=== PATIENT | female | born 1945 | race Caucasian/White ===

== ENCOUNTER 2021-10-26 17:42 | Inpatient (IN) ==
--- NOTE | 2021-10-26 17:56 | EKG ---
[facility] Test Date: 2021-10-26 Pat Name: Dayanna Bain Department: ED Room: Gender: Female Supervisory Geographer: MIRTA : 1945 Requested By: Hank Best Order Number: [id number] Reading MD: Monet Penn D.O. Measurements Intervals [place] Rate: 85 P: 64 ND: 188 QRS: 0 QRSD: 97 T: 31 QT: 373 QTc: 444 Interpretive Statements Sinus rhythm left axis devation Electronically Signed On 10-26-2021 17:55:57 PDT by Monet Penn D.O. /store/[email or web address]/[id number]
[2021-10-26] MEDS ORDERED: 0.9 % SODIUM CHLORIDE 1,000 ML IV ONE (18:08)
[2021-10-26 18:31] LABS: POC Blood Urea Nitrogen 43 mg/dL (6-20); POC CO2 22 mmol/L (22-30); POC Calcium, Ionized 0.99 mmEq/L (1.16-1.32); POC Chloride 102 mEq/L (96-108); POC Creatinine 2.7 mg/dL (0.6-1.2); POC Glucose, Random 156 mg/dL (70-105); POC Hematocrit 36 % (36-48); POC Potassium 3.3 mEql/L (3.3-5.1); POC Sodium 137 mEq/L (133-145)
[2021-10-26 19:00] LABS: Basophils # (Auto) 0.04 K/mcL (0.00-0.30); Basophils % (Auto) 0.5 % (0.0-2.0); Eosinophils # (Auto) 0.12 K/mcL (0.00-0.70); Eosinophils % (Auto) 1.4 % (0.0-7.0); Hematocrit 37.6 % (34.1-44.9); Hemoglobin 11.9 g/dL (11.2-15.7); Lymphocytes # (Auto) 0.88 K/mcL (1.50-4.80); Lymphocytes % (Auto) 10.2 % (15.5-49.0); Mean Cell Volume 91.7 fL (80.0-100.0); Mean Corpuscular HGB Conc 31.6 g/dL (31.0-36.0); Mean Platelet Volume 10.2 fL (7.4-10.4); Monocytes # (Auto) 0.37 K/mcL (0.10-0.90); Monocytes % (Auto) 4.3 % (1.0-12.0); Neutrophils % (Auto) 83.6 % (38.0-78.0); Platelet Count 239 K/mcL (140-440); Red Cell Distribution Width 13.6 % (11.5-14.5); WBC 8.6 K/mcL (4.5-11.0)
--- NOTE | 2021-10-26 19:57 | Internal Med History&Physical ---
HPI History of Present Illness Patient information: Note initiated : 10/26/21 at 7:56 pm Service Date, if different from initiated Date: [] Patient: Dayanna Bain 76 y/o F admitted on for Weakness. Chief Complaint: [] History of present illness: Ms. Bain is a 76 year old female with a history of deafness, hypertension, hyperlipidemia, chronic kidney disease, on lisinopril, hydrochlorothiazide and Lasix presented to the emergency department for generalized weakness and loose stools and found to have an acute on chronic kidney disease injury. Patient received a IV fluid bolus in the emergency department. Hospital medicine was consulted for admission. It is very difficult to get history from the patient due to her deafness. Review of systems: Unable to obtain due to deafness. Physical exam Head: Atraumatic, normal inspection. Eyes: normal appearance, no scleral icterus. Neck: full ROM Respiratory: no respiratory distress. Cardiovascular: normal rate and rhythm, S1, S2. GI/Abdominal: soft, nontender, no guarding. Extremities: full range of motion, nontender. Neurological: CN II-XII intact, intact motor, intact sensation. Psychiatric: normal mood. Skin: Decreased skin turgor. PFSH PFSH All Active Problems (Updated 10/26/21 @ 20:08 by Hank Best DO) Acute kidney injury (Acute) Dehydration (Acute) MEDS/ALLERGIES Home Medications and Allergies Home Medications Medication Instructions Recorded Confirmed Type albuterol 90 mcg/actuation aerosol 2 mcg INHALATION PRN PRN 10/26/21 10/26/21 History inhaler aspirin 81 mg tablet,delayed 81 mg PO QDAY 10/26/21 10/26/21 History release diclofenac sodium 1 % topical gel 2 g TOPICAL QID 10/26/21 10/26/21 History furosemide 40 mg tablet 40 mg PO QDAY 10/26/21 10/26/21 History gabapentin 100 mg tablet 100 mg PO QDAY 10/26/21 10/26/21 History hydrochlorothiazide 25 mg tablet 25 mg PO QDAY 10/26/21 10/26/21 History lidocaine HCl 4 % topical liquid 4 ea TOPICAL PRN PRN 10/26/21 10/26/21 History roll-on (Aspercreme (lidocaine HCl)) lisinopril 40 mg tablet 40 mg PO QDAY 10/26/21 10/26/21 History lovastatin 10 mg tablet 10 mg PO QDAY 10/26/21 10/26/21 History Allergies Allergy/AdvReac Type Severity Reaction Status Date / Time morphine Allergy Unknown Unknown Verified 10/26/21 17:45 EXAM Constitutional Vitals: Pulse Resp BP Pulse Ox 75 19 102/67 100 10/26/21 19:39 10/26/21 19:39 10/26/21 19:31 10/26/21 19:39 DATA Data Completed and Pending Labs: Labs from last 24 hours 10/26/21 10/26/21 18:23 18:23 WBC 8.6 RBC 4.10 Hgb 11.9 Hct 37.6 POC Hct 36 MCV 91.7 MCH 29.0 MCHC 31.6 RDW 13.6 Plt Count 239 MPV 10.2 Neut % (Auto) 83.6 H Lymph % (Auto) 10.2 L [place] % (Auto) 4.3 Eos % (Auto) 1.4 Baso % (Auto) 0.5 Lymph # (Auto) 0.88 L [place] # (Auto) 0.37 Eos # (Auto) 0.12 Baso # (Auto) 0.04 Absolute Neutrophils 7.22 POC Sodium 137 POC Potassium 3.3 POC Chloride 102 POC Total CO2 22 POC BUN 43 H POC Creatinine 2.7 H POC Glucose 156 H POC WB Ioniz Calcium 0.99 L Magnesium 2.6 H A/P Narrative A/P Narrative: Assessment: 76 year old female with a history of hypertension, hyperlipidemia, chronic kidney disease, on lisinopril, hydrochlorothiazide and Lasix presented to the emergency department for generalized weakness and loose stools and found to have an acute on chronic kidney disease injury. #Acute on chronic kidney disease injury -Probably prerenal OCTAVIA versus ATN. #Generalized weakness #Reported loose stools #Essential hypertension #Obesity BMI 31 Plan -IV fluid, follow urine output. -Follow renal function, electrolytes. -Hold lisinopril, hydrochlorothiazide, Lasix, NSAIDs. -Bilateral renal ultrasound. -Urinalysis. -Monitor for ongoing loose stools, consider work-up if persistent. -Home medication reconciliation. -Regular diet. -PT consult. -DVT prophylaxis: Heparin SQ -Disposition: TBD Time Spent With Patient Time: Total time spent is greater than 50% in coordination of care (as documented) at patient's floor/unit and/or counseling patient:
--- NOTE | 2021-10-26 20:08 | Emergency Department Note ---
HPI General Chief complaint: Weakness Stated complaint: Weakness Time Seen by Provider: 10/26/21 18:08 Source: patient Mode of arrival: ambulatory Limitations: physical limitation History of Present Illness HPI Narrative: Patient is clinically deaf presents chief complaint generally not feeling well over the last 7 days. Associated with nonfocal weakness and fatigue. Has been having episodes of multiple bowel movements daily that are not bilious dark and tarry watery or foul-smelling. Patient denies current CP, sob, fever, chills, focal acute weakness, loss/change of sensation, or any other complaints at this time. PMH/PSHx/Meds/Allergies/SH/FH as per nursing documentation and reviewed. A full 10 point review of systems reviewed and negative except as noted in HPI. Related Data Home Medications Medication Instructions Recorded Confirmed albuterol 90 mcg/actuation aerosol 2 mcg INHALATION PRN PRN 10/26/21 10/26/21 inhaler aspirin 81 mg tablet,delayed 81 mg PO QDAY 10/26/21 10/26/21 release diclofenac sodium 1 % topical gel 2 g TOPICAL QID 10/26/21 10/26/21 furosemide 40 mg tablet 40 mg PO QDAY 10/26/21 10/26/21 gabapentin 100 mg tablet 100 mg PO QDAY 10/26/21 10/26/21 hydrochlorothiazide 25 mg tablet 25 mg PO QDAY 10/26/21 10/26/21 lisinopril 40 mg tablet 40 mg PO QDAY 10/26/21 10/26/21 lovastatin 10 mg tablet 10 mg PO QDAY 10/26/21 10/26/21 Allergies Allergy/AdvReac Type Severity Reaction Status Date / Time morphine Allergy Unknown Unknown Verified 10/26/21 17:45 Review of Systems ROS ROS Narrative: see HPI PFSH Narrative Patient History Narrative: Narrative: Medical/Surgical/Family History All Active Problems (Updated 10/26/21 @ 20:08 by Hank Best DO) Acute kidney injury (Acute) Dehydration (Acute) Social History Smoking Status: Unknown if ever smoked Exam Narrative Narrative: PHYSICIAL EXAM: Vitals reviewed GENERAL: The patient appears nourished and normally developed. No acute distress in room, vital signs as documented. EYES: Head exam is unremarkable. No scleral icterus HEENT: Mucous membranes moist. Nares patent without copious rhinorrhea. LUNGS: Lungs are clear to auscultation, -r/r/w without any respiratory distress. CARDIAC: Rhythm is regular. No dysrhythmias or murmurs. ABDOMEN: Soft, non-tender, non-distended, no rebound/guarding, with no obvious masses EXTREMITIES: No peripheral edema, with no obvious deformities. SKIN: Good color, with no significant rashes. No pallor. NEURO: No obvious neurological deficits, normal sensation and strength bilaterally. P PSYCH: Mood and affect normal. Appropriate for age. General Limitations: physical limitation Course Reevaluation(s) Reevaluation #1: Patient will be admitted as discussed emergency department will continue to monitor Time: 20:07 Vital Signs Vital signs: Vital Signs Blood Pressure 93/48 10/26/21 17:46 Temperature 98.4 F 10/27/21 08:00 Pulse Rate 93 H 10/27/21 08:00 Respiratory Rate 17 10/27/21 08:00 Blood Pressure 118/56 10/27/21 08:00 Pulse Oximetry (%) 97 10/27/21 08:00 [facility] MDM Narrative Medical decision making narrative: All results/imaging obtained reviewed and interpreted, results trended/compared with previous levels if available to evaluate for abnormality contributing to todays presentation, And have acute kidney injury and dehydration vital signs improved emergency department with hydration understands plan for admission agrees After reviewing patients comorbidities, severity of history of presenting illness, labs and imaging if obtained in conjunction with physical exam and course in emergency department, deemed to have potential for deterioration/progression of symptoms that could lead to multiple morbidities or mortality, decision made that patient requires further observation/evaluation/treatment and patient admitted to appropriate service, patient/family understand and agree with plan. Chart created with voice recognition software, errors may be present due to softwares interpretation Lab Data Result diagrams: 10/26/21 18:23 10/27/21 05:20 Labs: Lab Results 10/26/21 10/26/21 Range/Units 18:23 18:23 WBC 8.6 (4.5-11.0) K/mcL RBC 4.10 (3.59-5.38) M/mcL Hgb 11.9 (11.2-15.7) g/dL Hct 37.6 (34.1-44.9) % POC Hct 36 (36-48) % MCV 91.7 (80.0-100.0) fL MCH 29.0 (26.0-34.0) pg MCHC 31.6 (31.0-36.0) g/dL RDW 13.6 (11.5-14.5) % Plt Count 239 (140-440) K/mcL MPV 10.2 (7.4-10.4) fL Neut % (Auto) 83.6 H (38.0-78.0) % Lymph % (Auto) 10.2 L (15.5-49.0) % [place] % (Auto) 4.3 (1.0-12.0) % Eos % (Auto) 1.4 (0.0-7.0) % Baso % (Auto) 0.5 (0.0-2.0) % Lymph # (Auto) 0.88 L (1.50-4.80) K/mcL [place] # (Auto) 0.37 (0.10-0.90) K/mcL Eos # (Auto) 0.12 (0.00-0.70) K/mcL Baso # (Auto) 0.04 (0.00-0.30) K/mcL Absolute Neutrophils 7.22 (1.80-8.00) K/mcL POC Sodium 137 (133-145) mEq/L POC Potassium 3.3 (3.3-5.1) mEql/L POC Chloride 102 (96-108) mEq/L POC Total CO2 22 (22-30) mmol/L POC BUN 43 H (6-20) mg/dL POC Creatinine 2.7 H (0.6-1.2) mg/dL POC Glucose 156 H (70-105) mg/dL POC WB Ioniz Calcium 0.99 L (1.16-1.32) mmEq/L Magnesium 2.6 H (1.6-2.5) mg/dL ED POC Tests ED POC Tests: MELANIE - SARS Antigen Negative EKG Data EKG #1: EKG attestation: Yes I reviewed and interpreted this EKG. EKG results narrative: Obtained 1751 reviewed 1753 Sinus rhythm no acute ST elevation depression signs acute ischemia rate 85 PA 188 QRS 97 QT 373 QTC 444 no bundle branch block normal axis Interpreted personally Discharge Plan Patient/Caregiver Discharge Instructions Pt seen by STRATEGY CONSULTANT/PA only: No Clinical Impression: Acute kidney injury, Dehydration Patient Disposition: Xfer As Inpt ([facility]) Discharge Date/Time: 10/26/21 21:42
[2021-10-26] MEDS ORDERED: SENNOSIDES 1 TABLET PO PRN ×2 (21:48→22:00)
[2021-10-26] MEDS ORDERED: ONDANSETRON 4 MG/2 ML VIAL IV PRN (21:48)
[2021-10-26] MEDS: 0.9 % SODIUM CHLORIDE 10 ML SYRINGE IV SCH (22:19)
[2021-10-26] MEDS: HEPARIN 5,000 UNIT/ML VIAL SQ SCH (22:19)
[2021-10-26] MEDS: LACTATED RINGERS 1,000 ML IV SCH (22:19)
[2021-10-27 04:16] LABS: Appearance,Urine CLEAR (Clear); Bilirubin,Urine Negative (Negative); Color,Urine YELLOW; Culture Indicated,Urine No; Glucose,Urine (UA) Negative (Negative); Ketones,Urine Negative (Negative); Leukocyte Esterase,Urine Negative /uL (Negative); Mucus,Urine MOD /hpf; Nitrate,Urine Negative (Negative); Protein,Urine Negative (Negative); Specific Gravity,Urine 1.011 (1.000-1.035); Urine Blood 0.03 mg/dL (Negative); Urine Hyaline Cast 61 /lph (0-2); Urine RBC 1 /hpf (0-3); Urine Squamous Epithelial Cell 1 /hpf (0-4); Urine Transitional Epi Cells < 1 /hpf (0-2); Urine WBC 2 /hpf (0-4); Urobilinogen,Urine Negative
[2021-10-27] MEDS: 0.9 % SODIUM CHLORIDE 10 ML SYRINGE IV SCH ×3 (05:11→20:37)
[2021-10-27 06:51] LABS: ALT/SGPT 5 U/L (<40); AST/SGOT 11 U/L (<32); Alkaline Phosphatase 129 U/L (39-117); Bilirubin,Direct < 0.2 mg/dL (0-0.3); Bilirubin,Total 0.3 mg/dL (0.1-1.0); Blood Urea Nitrogen 45 mg/dL (8-23); Calcium 8.6 mg/dL (8.6-10.4); Carbon Dioxide 24 mmol/L (22-30); Chloride 101 mmol/L (96-108); Globulin 3.1 gm/dL (2.2-3.7); Glomerular Filtration Rate 21; Glucose 97 mg/dL (70-105); Lactate Dehydrogenase 184 U/L (135-225); Phosphorous 3.7 mg/dL (2.5-4.5); Triglycerides 95 mg/dL (<150); Uric Acid 12.4 mg/dL (2.5-8.0)
[2021-10-27] MEDS: LACTATED RINGERS 1,000 ML IV SCH ×4 (07:32→21:28)
--- NOTE | 2021-10-27 08:40 | Ultrasound Report ---
INDICATION: Acute kidney injury TECHNIQUE: Grayscale and color flow Doppler spectral imaging. COMPARISON: None. FINDINGS: Right kidney: Right kidney .0 x 4.1 x 4.4 cm. There is no hydronephrosis. No solid right renal mass. Renal cortex is mildly thinned and measures approximately 8 mm. No detectable calculi. Left kidney: Left kidney [id number] x 3.6 x 4.9 cm. There is no hydronephrosis. No solid left renal mass. Renal cortex is mildly thickened and measures approximately 8 mm. No detectable calculi. Incidental note is made of a benign simple cyst. This is lower pole and measures 1.6 cm in diameter. Bladder: Prevoid bladder mL. Post void bladder volumeis not assessed as this patient is unable to void. No bladder calculi. No detectable mass. Bilateral ureteral jets visualized. IMPRESSION: 1. Mild bilateral renal cortical thinning 2. No hydronephrosis or solid renal mass. No acute abnormality Interpreted and Authenticated by: Kael Jimenez 10/27/21
[2021-10-27] MEDS: HEPARIN 5,000 UNIT/ML VIAL SQ SCH ×2 (08:50→20:36)
--- NOTE | 2021-10-27 17:07 | Internal Med Progress Note ---
SUBJECTIVE Subjective Patient information: Note initiated : 10/27/21 at 5:03 pm Service Date, if different from initiated Date: [] Patient: Dayanna Bain 76 y/o F admitted on 10/26/21 for Weakness. Chief Complaint: [] Interval history: Ms. Bain is a 76 year old female with a history of deafness, hypertension, hyperlipidemia, chronic kidney disease, on lisinopril, hydrochlorothiazide and Lasix presented to the emergency department for generalized weakness and loose stools and found to have an acute on chronic kidney disease injury. Patient re ceived a IV fluid bolus in the emergency department. Hospital medicine was consulted for admission. It is very difficult to get history from the patient due to her deafness. 10/27 Renal function modestly improved, making urine, bilateral renal ultrasound did not show any evidence of hydronephrosis, urine analysis was benign. Review of the patient's past laboratory work indicate the patient does have chronic kidney disease stage III at baseline. Conversation held with the patient with the help of an oracle application architect. Physical exam Head: Atraumatic, normal inspection. Eyes: normal appearance, no scleral icterus. Neck: full ROM Respiratory: no respiratory distress. Cardiovascular: normal rate and rhythm, S1, S2. GI/Abdominal: soft, nontender, no guarding. Extremities: full range of motion, nontender. Neurological: CN II-XII intact, intact motor, intact sensation. Psychiatric: normal mood. Skin: Improved skin turgor. Constitutional Vitals: Vital Signs Temp Pulse Resp BP Pulse Ox 98.4 F 79 16 122/56 97 10/27/21 11:51 10/27/21 11:51 10/27/21 11:51 10/27/21 11:51 10/27/21 11:51 Period Temp Pulse Resp BP Sys/Ojeda Pulse Ox Last 24 Hr 96.8 F-98.4 F 72-96 15-36 86-122/30-85 90-100 Intake and Output 10/27/21 10/27/21 10/27/21 05:59 13:59 21:59 Intake Total 475 1345 Output Total 725 300 Balance -250 1045 Weight 57.425 kg 57.425 kg Patient Weight 10/28/21 05:59 Weight 57.425 kg Intake & Output: Intake & Output 10/27/21 10/27/21 10/27/21 05:59 13:59 21:59 Intake Total 475 1345 Output Total 725 300 Balance -250 1045 Weight 57.425 kg 57.425 kg Intake: IV 1345 Lactated Ringers 1,000 ml @ 100 1345 mls/hr IV .Q10H [facility] Rx#: [id number] Oral 475 Output: Void Amount 200 300 Urine/Stool Mix 250 Stool 275 Other: Meal cheese stick Percent of Meal Consumed 100% Feeding Ability Independent Urine Appearance Clear Urine Color Dark Yellow Bright Yellow Stool Size Smear Stool Color Brown Stool Consistency Liquid # Bowel Movements 1 OBJ DATA Labs CBC & Chem 7: 10/26/21 18:23 10/27/21 05:20 Labs: Abnormal Lab Results 10/27/21 10/27/21 10/26/21 05:20 02:45 18:23 Neut % (Auto) Lymph % (Auto) Lymph # (Auto) POC BUN 43 H BUN 45 H Creatinine 2.2 H POC Creatinine 2.7 H POC Glucose 156 H Uric Acid 12.4 H POC WB Ioniz Calcium 0.99 L Magnesium 2.6 H Alkaline Phosphatase 129 H Albumin 3.0 L Hyaline Casts 61 H Urine Mucus Mod A 10/26/21 18:23 Neut % (Auto) 83.6 H Lymph % (Auto) 10.2 L Lymph # (Auto) 0.88 L POC BUN BUN Creatinine POC Creatinine POC Glucose Uric Acid POC WB Ioniz Calcium Magnesium Alkaline Phosphatase Albumin Hyaline Casts Urine Mucus Meds: Medications Acetaminophen (Acetaminophen 325 Mg Tablet) 650 mg PO Q6HP PRN; Protocol PRN Reason: Per Pain Protocol/Fever > 101 Albuterol Sulfate (Albuterol Sulfate 200 Puff Inhaler) 2 puff INH Q4HP PRN PRN Reason: Shortness Of Breath Aspirin (Aspirin 81 Mg Tab.Chew) 81 mg PO QDAY [facility] Atorvastatin Calcium (Atorvastatin 10 Mg Tablet) 2.5 mg PO QDAY [facility] Gabapentin (Gabapentin 100 Mg Capsule) 100 mg PO QDAY [facility] Heparin Sodium (Porcine) (Heparin 5,000 Unit/Ml Vial) 5,000 unit SQ Q12 [facility] Last Admin: 10/27/21 08:50 Dose: 5,000 unit Documented by: Lactated Ringer's (Lactated Ringers) 1,000 mls @ 100 mls/hr IV .Q10H [facility] Last Infusion: 10/27/21 11:46 Dose: 75 mls/hr Documented by: Ondansetron HCl (Ondansetron 4 Mg/2 Ml Vial) 4 mg IV Q6HP PRN PRN Reason: Nausea And Vomiting Pneumococcal Polyvalent Vaccine (Pneumococcal 23-Adrianne P-Sac Vac 0.5 Ml Syringe) 0.5 ml IM .ONCE ONE Stop: 10/28/21 10:01 Senna (Sennosides 1 Tablet) 2 tab PO BIDP PRN PRN Reason: constipation Sodium Chloride (0.9 % Sodium Chloride 10 Ml Syringe) 10 ml IV Q8 [facility] Last Admin: 10/27/21 13:30 Dose: Not Given Documented by: A/P Narrative A/P Narrative: Assessment: 76 year old female with a history of hypertension, hyperlipidemia, chronic kidney disease, on lisinopril, hydrochlorothiazide and Lasix presented to the emergency department for generalized weakness and loose stools and found to have an acute on chronic kidney disease injury. #Acute on chronic kidney disease injury -Probably ATN. #Generalized weakness #Reported loose stools #Essential hypertension #Obesity BMI 31 Plan -Continue IV fluid, follow urine output. -Follow renal function, electrolytes. -Monitor volume status. -Hold lisinopril, hydrochlorothiazide, Lasix, NSAIDs. -Resume home aspirin, gabapentin, lovastatin, albuterol as needed. -Regular diet. -PT and OT consult. -DVT prophylaxis: Heparin SQ -Disposition: TBD Time Spent With Patient Time: Total time spent is greater than 50% in coordination of care (as documented) at patient's floor/unit and/or counseling patient: QUALITY VTE Deep Vein Thrombosis/Pulmonary Embolism Present on Admission: No
[2021-10-27] MEDS: ACETAMINOPHEN 325 MG TABLET PO PRN (18:53)
[2021-10-27] MEDS: ALBUTEROL SULFATE 200 PUFF INHALER INH PRN (20:36)
[2021-10-28] MEDS: LACTATED RINGERS 1,000 ML IV SCH (02:30)
[2021-10-28] MEDS: ALBUTEROL SULFATE 200 PUFF INHALER INH PRN (05:21)
[2021-10-28] MEDS: 0.9 % SODIUM CHLORIDE 10 ML SYRINGE IV SCH ×2 (05:21→15:15)
[2021-10-28] MEDS: ACETAMINOPHEN 325 MG TABLET PO PRN ×2 (07:31→15:25)
[2021-10-28 07:32] LABS: ALT/SGPT < 5 U/L (<40); AST/SGOT 10 U/L (<32); Albumin 2.8 gm/dL (3.2-5.2); Alkaline Phosphatase 99 U/L (39-117); Bilirubin,Direct < 0.2 mg/dL (0-0.3); Bilirubin,Total 0.3 mg/dL (0.1-1.0); Blood Urea Nitrogen 29 mg/dL (8-23); Calcium 8.2 mg/dL (8.6-10.4); Carbon Dioxide 23 mmol/L (22-30); Chloride 102 mmol/L (96-108); Globulin 2.7 gm/dL (2.2-3.7); Glomerular Filtration Rate 30; Glucose 85 mg/dL (70-105); Lactate Dehydrogenase 202 U/L (135-225); Phosphorous 2.2 mg/dL (2.5-4.5); Triglycerides 103 mg/dL (<150); Uric Acid 10.7 mg/dL (2.5-8.0)
[2021-10-28] MEDS: ATORVASTATIN 10 MG TABLET PO SCH (09:00)
[2021-10-28] MEDS: GABAPENTIN 100 MG CAPSULE PO SCH (09:00)
[2021-10-28] MEDS ORDERED: PNEUMOCOCCAL 23-VAL P-SAC VAC 0.5 ML SYRINGE IM ONE (10:00)
[2021-10-28] MEDS: ASPIRIN 81 MG TAB.CHEW PO SCH (10:32)
[2021-10-28] MEDS: HEPARIN 5,000 UNIT/ML VIAL SQ SCH (10:40)
--- NOTE | 2021-10-28 16:05 | Internal Med Progress Note ---
SUBJECTIVE Subjective Patient information: Note initiated : 10/28/21 at 4:03 pm Service Date, if different from initiated Date: [] Patient: Dayanna Bain 76 y/o F admitted on 10/26/21 for Weakness. Chief Complaint: [] Interval history: Ms. Bain is a 76 year old female with a history of deafness, hypertension, hyperlipidemia, chronic kidney disease, on lisinopril, hydrochlorothiazide and Lasix presented to the emergency department for generalized weakness and loose stools and found to have an acute on chronic kidney disease injury. Patient re ceived a IV fluid bolus in the emergency department. Hospital medicine was consulted for admission. It is very difficult to get history from the patient due to her deafness. 10/27 Renal function modestly improved, making urine, bilateral renal ultrasound did not show any evidence of hydronephrosis, urine analysis was benign. Review of the patient's past laboratory work indicate the patient does have chronic kidney disease stage III at baseline. Conversation held with the patient with the help of an forming roll operator. 10/28 Renal function improving, discontinued IV fluid. Now working on SNF placement. Physical exam Head: Atraumatic, normal inspection. Eyes: normal appearance, no scleral icterus. Neck: full ROM Respiratory: no respiratory distress. Cardiovascular: normal rate and rhythm, S1, S2. GI/Abdominal: soft, nontender, no guarding. Extremities: full range of motion, nontender. Neurological: CN II-XII intact, intact motor, intact sensation. Psychiatric: normal mood. Skin: Improved skin turgor. Constitutional Vitals: Vital Signs Temp Pulse Resp BP Pulse Ox 98.5 F 71 16 101/53 96 10/28/21 15:52 10/28/21 15:52 10/28/21 15:52 10/28/21 15:52 10/28/21 15:52 Period Temp Pulse Resp BP Sys/Ojeda Pulse Ox Last 24 Hr 98.2 F-99.2 F 71-86 16-19 90-116/42-56 93-96 Intake and Output 10/28/21 10/28/21 10/28/21 05:59 13:59 21:59 Intake Total 1000 1577 0 Output Total 900 200 150 Balance 100 1377 -150 Intake & Output: Intake & Output 10/28/21 10/28/21 10/28/21 05:59 13:59 21:59 Intake Total 1000 1577 0 Output Total 900 200 150 Balance 100 1377 -150 Intake: IV 1577 0 Lactated Ringers 1,000 ml @ 100 1577 0 mls/hr IV .Q10H [facility] Rx#: [id number] Oral 1000 Output: Void Amount 900 150 Urine/Stool Mix 200 Other: Urine Appearance Clear Clear Clear Urine Color Bright Yellow Straw Pale Urine Odor Normal Stool Size Small Smear Stool Color Brown Brown Stool Consistency Loose Liquid OBJ DATA Labs CBC & Chem 7: 10/26/21 18:23 10/28/21 05:36 Labs: Abnormal Lab Results 10/28/21 10/27/21 10/27/21 05:36 05:20 02:45 Neut % (Auto) Lymph % (Auto) Lymph # (Auto) POC BUN BUN 29 H 45 H Creatinine 1.6 H 2.2 H POC Creatinine POC Glucose Uric Acid 10.7 H 12.4 H Calcium 8.2 L POC WB Ioniz Calcium Phosphorus 2.2 L Magnesium Alkaline Phosphatase 129 H Total Protein 5.5 L Albumin 2.8 L 3.0 L Hyaline Casts 61 H Urine Mucus Mod A 10/26/21 10/26/21 18:23 18:23 Neut % (Auto) 83.6 H Lymph % (Auto) 10.2 L Lymph # (Auto) 0.88 L POC BUN 43 H BUN Creatinine POC Creatinine 2.7 H POC Glucose 156 H Uric Acid Calcium POC WB Ioniz Calcium 0.99 L Phosphorus Magnesium 2.6 H Alkaline Phosphatase Total Protein Albumin Hyaline Casts Urine Mucus Meds: Medications Acetaminophen (Acetaminophen 325 Mg Tablet) 650 mg PO Q6HP PRN; Protocol PRN Reason: Per Pain Protocol/Fever > 101 Last Admin: 10/28/21 15:25 Dose: 650 mg Documented by: Albuterol Sulfate (Albuterol Sulfate 200 Puff Inhaler) 2 puff INH Q4HP PRN PRN Reason: Shortness Of Breath Last Admin: 10/28/21 05:21 Dose: 2 puff Documented by: Aspirin (Aspirin 81 Mg Tab.Chew) 81 mg PO QDAY [facility] Last Admin: 10/28/21 10:32 Dose: 81 mg Documented by: Atorvastatin Calcium (Atorvastatin 10 Mg Tablet) 2.5 mg PO QDAY [facility] Last Admin: 10/28/21 09:00 Dose: 2.5 mg Documented by: Gabapentin (Gabapentin 100 Mg Capsule) 100 mg PO QDAY [facility] Last Admin: 10/28/21 09:00 Dose: 100 mg Documented by: Ondansetron HCl (Ondansetron 4 Mg/2 Ml Vial) 4 mg IV Q6HP PRN PRN Reason: Nausea And Vomiting Senna (Sennosides 1 Tablet) 2 tab PO BIDP PRN PRN Reason: constipation Sodium Chloride (0.9 % Sodium Chloride 10 Ml Syringe) 10 ml IV Q8 [facility] Last Admin: 10/28/21 15:15 Dose: 10 ml Documented by: A/P Narrative A/P Narrative: Assessment: 76 year old female with a history of hypertension, hyperlipidemia, chronic kidney disease, on lisinopril, hydrochlorothiazide and Lasix presented to the emergency department for generalized weakness and loose stools and found to have an acute on chronic kidney disease injury. #Resolving acute on chronic kidney disease injury #Generalized weakness #Reported loose stools #Resolved bloody bowel movement #Essential hypertension #Obesity BMI 31 Plan -Discontinue IV fluid. -Follow renal function, electrolytes. -Monitor volume status. -Hold lisinopril, hydrochlorothiazide, Lasix, NSAIDs. -Home aspirin, gabapentin, lovastatin, albuterol as needed. -Regular diet. -PT and OT consult. -DVT prophylaxis: Heparin SQ -Disposition: SNF for rehab, follow up with PCP and possible GI referral to evaluate intermittent bloody bowel movements. Time Spent With Patient Time: Total time spent is greater than 50% in coordination of care (as documented) at patient's floor/unit and/or counseling patient: QUALITY VTE Deep Vein Thrombosis/Pulmonary Embolism Present on Admission: No
[2021-10-29] MEDS: 0.9 % SODIUM CHLORIDE 10 ML SYRINGE IV SCH ×4 (00:34→20:56)
[2021-10-29 07:07] LABS: ALT/SGPT < 5 U/L (<40); AST/SGOT 9 U/L (<32); Albumin 2.7 gm/dL (3.2-5.2); Alkaline Phosphatase 84 U/L (39-117); Bilirubin,Direct < 0.2 mg/dL (0-0.3); Bilirubin,Total < 0.2 mg/dL (0.1-1.0); Blood Urea Nitrogen 25 mg/dL (8-23); Calcium 8.5 mg/dL (8.6-10.4); Carbon Dioxide 25 mmol/L (22-30); Chloride 105 mmol/L (96-108); Globulin 2.7 gm/dL (2.2-3.7); Glomerular Filtration Rate 39; Glucose 86 mg/dL (70-105); Lactate Dehydrogenase 169 U/L (135-225); Phosphorous 2.4 mg/dL (2.5-4.5); Triglycerides 98 mg/dL (<150); Uric Acid 9.7 mg/dL (2.5-8.0)
[2021-10-29] MEDS: ASPIRIN 81 MG TAB.CHEW PO SCH (08:56)
[2021-10-29] MEDS: ATORVASTATIN 10 MG TABLET PO SCH (08:57)
[2021-10-29] MEDS: GABAPENTIN 100 MG CAPSULE PO SCH (08:57)
[2021-10-29] MEDS: ALBUTEROL SULFATE 200 PUFF INHALER INH PRN ×2 (14:29→20:56)
--- NOTE | 2021-10-29 16:23 | Internal Med Progress Note ---
SUBJECTIVE Subjective Patient information: Note initiated : 10/29/21 at 4:19 pm Service Date, if different from initiated Date: [] Patient: Dayanna Bain 76 y/o F admitted on 10/26/21 for Weakness. Chief Complaint: [] Interval history: Ms. Bain is a 76 year old female with a history of deafness, hypertension, hyperlipidemia, chronic kidney disease, on lisinopril, hydrochlorothiazide and Lasix presented to the emergency department for generalized weakness and loose stools and found to have an acute on chronic kidney disease injury. Patient re ceived a IV fluid bolus in the emergency department. Hospital medicine was consulted for admission. It is very difficult to get history from the patient due to her deafness. 10/27 Renal function modestly improved, making urine, bilateral renal ultrasound did not show any evidence of hydronephrosis, urine analysis was benign. Review of the patient's past laboratory work indicate the patient does have chronic kidney disease stage III at baseline. Conversation held with the patient with the help of an molder helper. 10/28 Renal function improving, discontinued IV fluid. Now working on SNF placement. 10/29 Renal function now probably at baseline, resting comfortably today. Blood pressure mostly normal and does not appear volume overloaded, continue to hold prior lisinopril, Hydrochlorothiazide, Lasix. Updated the patient's son. Working on placement. Physical exam Head: Atraumatic, normal inspection. Eyes: normal appearance, no scleral icterus. Neck: full ROM Respiratory: no respiratory distress. Cardiovascular: normal rate and rhythm, S1, S2. GI/Abdominal: soft, nontender, no guarding. Extremities: full range of motion, nontender. Neurological: CN II-XII intact, intact motor, intact sensation. Psychiatric: normal mood. Skin: Improved skin turgor. Constitutional Vitals: Vital Signs Temp Pulse Resp BP Pulse Ox 98 F 73 16 125/72 96 10/29/21 15:28 10/29/21 15:28 10/29/21 15:28 10/29/21 15:28 10/29/21 15:28 Period Temp Pulse Resp BP Sys/Ojeda Pulse Ox Last 24 Hr 97.7 F-98.4 F 71-77 16-20 104-136/37-77 94-96 Intake and Output 10/29/21 10/29/21 10/29/21 05:59 13:59 21:59 Intake Total 240 800 Output Total 1400 850 Balance -1160 -50 Intake & Output: Intake & Output 10/29/21 10/29/21 10/29/21 05:59 13:59 21:59 Intake Total 240 800 Output Total 1400 850 Balance -1160 -50 Intake: Oral 240 400 GI Tube Flush 400 Output: Void Amount 1400 850 Other: Meal Breakfast Percent of Meal Consumed 100% Feeding Ability Independent Urine Odor Normal Stool Size Small Stool Color Brown Stool Consistency Soft # Voids 3 1 # Bowel Movements 1 OBJ DATA Labs CBC & Chem 7: 10/26/21 18:23 10/29/21 05:38 Labs: Abnormal Lab Results 10/29/21 10/28/21 10/27/21 05:38 05:36 05:20 Neut % (Auto) Lymph % (Auto) Lymph # (Auto) POC BUN BUN 25 H 29 H 45 H Creatinine 1.3 H 1.6 H 2.2 H POC Creatinine POC Glucose Uric Acid 9.7 H 10.7 H 12.4 H Calcium 8.5 L 8.2 L POC WB Ioniz Calcium Phosphorus 2.4 L 2.2 L Magnesium Alkaline Phosphatase 129 H Total Protein 5.4 L 5.5 L Albumin 2.7 L 2.8 L 3.0 L Hyaline Casts Urine Mucus 10/27/21 10/26/21 10/26/21 02:45 18:23 18:23 Neut % (Auto) 83.6 H Lymph % (Auto) 10.2 L Lymph # (Auto) 0.88 L POC BUN 43 H BUN Creatinine POC Creatinine 2.7 H POC Glucose 156 H Uric Acid Calcium POC WB Ioniz Calcium 0.99 L Phosphorus Magnesium 2.6 H Alkaline Phosphatase Total Protein Albumin Hyaline Casts 61 H Urine Mucus Mod A Meds: Medications Acetaminophen (Acetaminophen 325 Mg Tablet) 650 mg PO Q6HP PRN; Protocol PRN Reason: Per Pain Protocol/Fever > 101 Last Admin: 10/28/21 15:25 Dose: 650 mg Documented by: Albuterol Sulfate (Albuterol Sulfate 200 Puff Inhaler) 2 puff INH Q4HP PRN PRN Reason: Shortness Of Breath Last Admin: 10/29/21 14:29 Dose: 2 puff Documented by: Aspirin (Aspirin 81 Mg Tab.Chew) 81 mg PO QDAY [facility] Last Admin: 10/29/21 08:56 Dose: 81 mg Documented by: Atorvastatin Calcium (Atorvastatin 10 Mg Tablet) 2.5 mg PO QDAY [facility] Last Admin: 10/29/21 08:57 Dose: 2.5 mg Documented by: Gabapentin (Gabapentin 100 Mg Capsule) 100 mg PO QDAY [facility] Last Admin: 10/29/21 08:57 Dose: 100 mg Documented by: Ondansetron HCl (Ondansetron 4 Mg/2 Ml Vial) 4 mg IV Q6HP PRN PRN Reason: Nausea And Vomiting Senna (Sennosides 1 Tablet) 2 tab PO BIDP PRN PRN Reason: constipation Sodium Chloride (0.9 % Sodium Chloride 10 Ml Syringe) 10 ml IV Q8 [facility] Last Admin: 10/29/21 14:24 Dose: 10 ml Documented by: A/P Narrative A/P Narrative: Assessment: 76 year old female with a history of hypertension, hyperlipidemia, chronic kidney disease, on lisinopril, hydrochlorothiazide and Lasix presented to the emergency department for generalized weakness and loose stools and found to have an acute on chronic kidney disease injury. The cause of the patient's acute on chronic kidney disease injury is likely hypovolemia occurring in the setting of multiple antihypertensive medications, lisinopril, hydrochlorothiazide, Lasix. After the patient was volume resuscitated, her blood pressure remained in the normal range off antihypertensives. #Resolved acute on chronic kidney disease injury #Generalized weakness #Obesity BMI 31 #Deafness Plan -Monitor renal function, electrolytes. -Monitor volume status. -Hold lisinopril, hydrochlorothiazide, Lasix, NSAIDs. -Home aspirin, gabapentin, lovastatin, albuterol as needed. -Regular diet. -PT and OT consult. -DVT prophylaxis: Heparin SQ -Disposition: SNF for rehab, follow up with PCP. May not need antihypertensive medications, the patient's blood pressure have been normal while holding her antihypertensive medications and lasix. Time Spent With Patient Time: Total time spent is greater than 50% in coordination of care (as documented) at patient's floor/unit and/or counseling patient: QUALITY VTE Deep Vein Thrombosis/Pulmonary Embolism Present on Admission: No
[2021-10-30] MEDS: 0.9 % SODIUM CHLORIDE 10 ML SYRINGE IV SCH ×3 (04:24→20:36)
[2021-10-30] MEDS: ATORVASTATIN 10 MG TABLET PO SCH (09:37)
[2021-10-30] MEDS: ASPIRIN 81 MG TAB.CHEW PO SCH (09:37)
[2021-10-30] MEDS: GABAPENTIN 100 MG CAPSULE PO SCH (09:37)
--- NOTE | 2021-10-30 11:11 | Internal Med Progress Note ---
SUBJECTIVE Subjective Patient information: Note initiated : 10/30/21 at 11:11 am Service Date, if different from initiated Date: [] Patient: Dayanna Bain 76 y/o F admitted on 10/26/21 for Weakness. Chief Complaint: [] Interval history: Ms. Bain is a 76 year old female with a history of deafness, hypertension, hyperlipidemia, chronic kidney disease, on lisinopril, hydrochlorothiazide and Lasix presented to the emergency department for generalized weakness and loose stools and found to have an acute on chronic kidney disease injury. Patient r eceived a IV fluid bolus in the emergency department. Hospital medicine was consulted for admission. It is very difficult to get history from the patient due to her deafness. 10/27 Renal function modestly improved, making urine, bilateral renal ultrasound did not show any evidence of hydronephrosis, urine analysis was benign. Review of the patient's past laboratory work indicate the patient does have chronic kidney disease stage III at baseline. Conversation held with the patient with the hel p of an log haul chain feeder. 10/28 Renal function improving, discontinued IV fluid. Now working on SNF placement. 10/29 Renal function now probably at baseline, resting comfortably today. Blood pressure mostly normal and does not appear volume overloaded, continue to hold prior lisinopril, Hydrochlorothiazide, Lasix. Updated the patient's son. Working on placement. 10/30 Feels okay today, constipated. Started bowel regimen. Renal function has improved, creatinine 1.3 today and likely near the patient's baseline renal function. Blood pressure slowly trending up, still holding prior antihypertensive medications and Lasix. Physical exam Head: Atraumatic, normal inspection. Eyes: normal appearance, no scleral icterus. Neck: full ROM Respiratory: no respiratory distress. Cardiovascular: normal rate and rhythm, S1, S2. GI/Abdominal: soft, nontender, no guarding. Extremities: full range of motion, nontender. Neurological: CN II-XII intact, intact motor, intact sensation. Psychiatric: normal mood. Skin: Improved skin turgor. Constitutional Vitals: Vital Signs Temp Pulse Resp BP Pulse Ox 98.0 F 69 24 H 131/46 98 10/30/21 08:00 10/30/21 08:00 10/30/21 08:00 10/30/21 08:00 10/30/21 08:00 Period Temp Pulse Resp BP Sys/Ojeda Pulse Ox Last 24 Hr 98 F-99.4 F 62-79 14-24 125-143/44-77 96-98 Intake and Output 10/29/21 10/30/21 10/30/21 21:59 05:59 13:59 Intake Total 800 800 Output Total 850 1200 Balance -50 -400 Weight 60.328 kg Intake & Output: Intake & Output 10/29/21 10/30/21 10/30/21 21:59 05:59 13:59 Intake Total 800 800 Output Total 850 1200 Balance -50 -400 Weight 60.328 kg Intake: Oral 400 800 GI Tube Flush 400 Output: Void Amount 850 1200 Other: Urine Appearance Sediment Urine Color Bright Yellow Urine Odor Normal Strong OBJ DATA Labs CBC & Chem 7: 10/26/21 18:23 10/29/21 05:38 Labs: Abnormal Lab Results 10/29/21 10/28/21 05:38 05:36 BUN 25 H 29 H Creatinine 1.3 H 1.6 H Uric Acid 9.7 H 10.7 H Calcium 8.5 L 8.2 L Phosphorus 2.4 L 2.2 L Total Protein 5.4 L 5.5 L Albumin 2.7 L 2.8 L Meds: Medications Acetaminophen (Acetaminophen 325 Mg Tablet) 650 mg PO Q6HP PRN; Protocol PRN Reason: Per Pain Protocol/Fever > 101 Last Admin: 10/28/21 15:25 Dose: 650 mg Documented by: Albuterol Sulfate (Albuterol Sulfate 200 Puff Inhaler) 2 puff INH Q4HP PRN PRN Reason: Shortness Of Breath Last Admin: 10/29/21 20:56 Dose: 2 puff Documented by: Aspirin (Aspirin 81 Mg Tab.Chew) 81 mg PO QDAY [facility] Last Admin: 10/30/21 09:37 Dose: 81 mg Documented by: Atorvastatin Calcium (Atorvastatin 10 Mg Tablet) 2.5 mg PO QDAY [facility] Last Admin: 10/30/21 09:37 Dose: 2.5 mg Documented by: Gabapentin (Gabapentin 100 Mg Capsule) 100 mg PO QDAY [facility] Last Admin: 10/30/21 09:37 Dose: 100 mg Documented by: Ondansetron HCl (Ondansetron 4 Mg/2 Ml Vial) 4 mg IV Q6HP PRN PRN Reason: Nausea And Vomiting Senna (Sennosides 1 Tablet) 2 tab PO BIDP PRN PRN Reason: constipation Sodium Chloride (0.9 % Sodium Chloride 10 Ml Syringe) 10 ml IV Q8 [facility] Last Admin: 10/30/21 04:24 Dose: 10 ml Documented by: A/P Narrative A/P Narrative: Assessment: 76 year old female with a history of hypertension, hyperlipidemia, chronic kidney disease, on lisinopril, hydrochlorothiazide and Lasix presented to the emergency department for generalized weakness and loose stools and found to have an acute on chronic kidney disease injury. The cause of the patient's acute on chronic kidney disease injury is likely hypovolemia occurring in the setting of multiple antihypertensive medications, lisinopril, hydrochlorothiazide, Lasix. After the patient was volume resuscitated, her bl ood pressure remained in the normal range off antihypertensives. #Resolved acute on chronic kidney disease injury #Generalized weakness, improving #Essential hypertension #Obesity BMI 31 #Deafness #Constipation Plan -Monitor renal function, electrolytes. -Off IV fluid now. -Monitor blood pressure, consider resuming 1 blood pressure med if blood pressure trends up. -Holding home lisinopril, hydrochlorothiazide, Lasix. -Continue Home aspirin, gabapentin, lovastatin, albuterol as needed. -Regular diet. -PT and OT consult. -Bowel regimen. -DVT prophylaxis: Heparin SQ -Disposition: SNF for rehab pending placement. At discharge, the patient may not need all her prior antihypertensive medications, especially the combination of hydrochlorothiazide and Lasix. The patient's blood pressure have been mostly normal while holding her antihypertensive medications and lasix. Time Spent With Patient Time: Total time spent is greater than 50% in coordination of care (as documented) at patient's floor/unit and/or counseling patient: QUALITY VTE Deep Vein Thrombosis/Pulmonary Embolism Present on Admission: No
[2021-10-30] MEDS: POLYETHYLENE GLYCOL 3350 17 GM PACKET PO SCH (13:25)
--- NOTE | 2021-10-30 15:02 | Discharge Summary ---
Discharge Provider Provider Patient information: Note initiated : 10/30/21 at 3:00 pm Service Date, if different from initiated Date: [] Patient: Dayanna Bain 76 y/o F admitted on 10/26/21 for Weakness. Chief Complaint: [] Date of admission: 10/26/21 21:42 Discharge date: 10/31/21 Primary care physician: Other Provider Consults: 10/26/21 Consult to Physician [CONS] Stat Comment: Consulting Provider: Sanchez Aiken Reason For Exam: Physician to Consult Discharge Meds Discharge Medications Home Medications albuterol 90 mcg/actuation aerosol inhaler 2 mcg INHALATION PRN PRN 10/26/21 [History Confirmed 10/26/21 Last Taken 10/26/21 08:00] aspirin 81 mg tablet,delayed release 81 mg PO QDAY 10/26/21 [History Confirmed 10/26/21 Last Taken 10/26/21 08:00] furosemide 40 mg tablet 40 mg PO QDAY 10/26/21 [History Confirmed 10/26/21 Last Taken 10/25/21 22:00] gabapentin 100 mg tablet 100 mg PO QDAY 10/26/21 [History Confirmed 10/26/21 Last Taken 10/25/21 22:00] lovastatin 10 mg tablet 10 mg PO QDAY 10/26/21 [History Confirmed 10/26/21 Last Taken 10/25/21 22:00] diclofenac sodium 1 % topical gel 2 g TOPICAL QID PRN #100 g 10/30/21 [Rx Last Taken Unknown] lisinopril 40 mg tablet 20 mg PO QDAY #1 tab 10/30/21 [Rx Last Taken Unknown] COURSE Hospital Course Hospital course: Interval history: Ms. Bain is a 76 year old female with a history of deafness, hypertension, hyperlipidemia, chronic kidney disease, on lisinopril, hydrochlorothiazide and Lasix presented to the emergency department for generalized weakness and loose stools and found to have an acute on chronic kidney disease injury. Patient received a IV fluid bolus in the emergency department. Hospital medicine was consulted for admission. It is very difficult to get history from the patient due to her deafness. 10/27 Renal function modestly improved, making urine, bilateral renal ultrasound did not show any evidence of hydronephrosis, urine analysis was benign. Review of the patient's past laboratory work indicate the patient does have chronic kidney disease stage III at baseline. Conversation held with the patient with the help of an photographer apprentice lithographic. 10/28 Renal function improving, discontinued IV fluid. Now working on SNF placement. 10/29 Renal function now probably at baseline, resting comfortably today. Blood pressure mostly normal and does not appear volume overloaded, continue to hold prior lisinopril, Hydrochlorothiazide, Lasix. Updated the patient's son. Working on placement. 10/30 Feels okay today, constipated. Started bowel regimen. Renal function has improved, creatinine 1.3 today and likely near the patient's baseline renal function. Blood pressure slowly trending up, still holding prior antihypertensive medications and Lasix. 10/31 Awaiting SNF placement. No issues overnight. Difficult to obtain review of system given severe hearing impairment. A/P: #Resolved acute on chronic kidney disease injury #Generalized weakness, improving #Essential hypertension #Obesity BMI 31 #Deafness #Constipation Plan -patient may not need all her prior antihypertensive medications, especially the combination of hydrochlorothiazide and Lasix. The patient's blood pressure have been mostly normal while holding her antihypertensive medications and lasix. ->> Stopped home hydrochlorothiazide but continued Lasix. Decreased lisinopril from 40 to 20 mg daily. Discharge diagnosis: Acute on chronic kidney disease generalized weakness Secondary discharge diagnosis: Hypertension obesity deafness constipation Time Spent with Patient Time attestation: Total time spent providing and/or coordinating discharge services: Time spent: Greater than 30 minutes EXAM Constitutional Vitals: Temp Pulse Resp BP Pulse Ox 98.4 F 71 16 136/42 99 10/30/21 11:23 10/30/21 11:23 10/30/21 11:23 10/30/21 11:23 10/30/21 11:23 Discharge Plan Patient/Caregiver Discharge Instructions Activity: ambulate only with your walker Diet: Regular Diet Prescriptions: Continued furosemide 40 mg Tablet 40 mg PO QDAY 0RF lovastatin 10 mg Tablet 10 mg PO QDAY 0RF aspirin 81 mg Tablet,Delayed Release (Dr/Ec) 81 mg PO QDAY 0RF albuterol 90 mcg/actuation Aerosol 2 mcg INHALATION PRN PRN (Reason: Shortness Of Breath Or Wheezing) 0RF gabapentin 100 mg Tablet 100 mg PO QDAY 0RF Changed lisinopril 40 mg Tablet 20 mg PO QDAY Qty: 1 0RF diclofenac sodium 1 % Gel 2 g TOPICAL QID PRN (Reason: pain]) Qty: 100 0RF Rx Instructions: apply to single elbow, wrist or hand; for hand includes palm/fingers/back of hand Discontinued hydrochlorothiazide 25 mg Tablet 25 mg PO QDAY 0RF Follow Up Plan Follow up with: Lissette Maradiaga MD [Physician] - 11/01/21 3:40 pm Patient Disposition: Xfer SNF Prognosis: Fair Rehab Potential: Fair I certify that the patient requires SNF services: Yes Overall status at discharge: patient is progressing back to baseline Discharge Orders: Discharge Order (Routine); Ordered 10/31/21 Ordered By: Benjamin Lion [facility] VTE Deep Vein Thrombosis/Pulmonary Embolism Present on Admission: No
[2021-10-30] MEDS: SENNOSIDES 1 TABLET PO SCH (20:37)
[2021-10-31] MEDS: 0.9 % SODIUM CHLORIDE 10 ML SYRINGE IV SCH ×2 (05:38→15:00)
[2021-10-31] MEDS: GABAPENTIN 100 MG CAPSULE PO SCH (08:18)
[2021-10-31] MEDS: SENNOSIDES 1 TABLET PO SCH (08:18)
[2021-10-31] MEDS: ATORVASTATIN 10 MG TABLET PO SCH (08:18)
[2021-10-31] MEDS: POLYETHYLENE GLYCOL 3350 17 GM PACKET PO SCH (08:18)
[2021-10-31] MEDS: ASPIRIN 81 MG TAB.CHEW PO SCH (08:18)
== END 2021-10-31 16:05 | DRG 684 ==
LOC: ED 17:42 → MEDSUR 21:42
PROVIDERS: ADMIT Internal Medicine; ATTEND Internal Medicine